=== PATIENT | male | born 1950 | race Caucasian/White ===

== ENCOUNTER 2017-10-02 19:08 | Inpatient (IN) | payer OTHER, BC ==
[~2017-10-02] VITALS: Ht 170.2 cm; Wt 91.5 kg
--- NOTE | ~2017-10-02 | HC ---
[facility] [place] [address] CONSULTATION Name: JOSELITO MIRELES Room #: 242-P [facility] IN ..#: [id number] Admission: 10/02/17 Attend Phys: Tan Hadley MD Discharge: Date of : 50 Report #: [id number] THIS REPORT FOR: //name// CC: Stephon Hadley TYPE OF REPORT: Infectious disease consultation. REASON FOR CONSULTATION: I was asked to evaluate concerning gram-negative bacteremia and sepsis. HISTORY OF PRESENT ILLNESS: The patient is a 66-year-old who presented on 10/02/2017 to the Emergency Room with abdominal pain. He has had associated nausea and vomiting. Workup in the Emergency Room noticed elevated lipase of 22,[address] scan showing changes of pancreatitis with inflammatory changes. No abscess. Gallstones. No ureteral obstruction, although he did have a left kidney stone, which was nonobstructing. It was felt most likely gallstone pancreatitis as his etiology to explain this presentation. Further workup identified pyuria and bacteriuria with urine culture showing pansensitive Escherichia coli. Urine culture from both 10/02/2017 and 10/04/2017 had grown the same organism. Blood cultures from 10/04/2017 are positive with gram-negative bacilli, awaiting identification. He has persistent leukocytosis. He was taken to the operating room today for laparoscopic cholecystectomy. No intraoperative complications were noted. Postoperatively, did not come off the ventilator and is now in the Intensive Care Unit. He is sedated. Hemodynamically, he has remained stable. Urine output has been adequate. ALLERGIES: PENTAZOCINE and BUTYL SOLVENT. MEDICATIONS: As noted on his MAR including Zosyn. PAST MEDICAL HISTORY: Diabetes, hypertension, stroke, arthritis, neuropathy and hyperlipidemia. FAMILY HISTORY: Noncontributory. SOCIAL HISTORY: Nonsmoker. No significant alcohol intake. REVIEW OF SYSTEMS: The patient has peripheral IVs. Orally intubated. External condom catheter. PHYSICAL EXAMINATION: VITAL SIGNS: Temperature 100.6, hemodynamically stable. He was sedated on the ventilator, FiO2 40%. ABG: pO2 129, pCO2 of 45 and pH 7.27. SKIN: He had multiple excoriations to his extremities. No cellulitis. HEENT: Eyes unremarkable. NECK: Supple. [facility] [address] [place] [address] CONSULTATION Name: JOSELITO MIRELES Room #: 242-P [facility] IN .R.#: [id number] Admission: 10/02/17 Attend Phys: Tan Hadley MD Discharge: Date of : 50 Report #: [id number] LUNGS: Clear. HEART: Regular, without murmur. ABDOMEN: Diffusely tender. Incisions were unremarkable. External condom catheter in place. EXTREMITIES: Unremarkable. LABORATORY DATA: Sodium 157, potassium 4, bicarbonate of 15, creatinine 1.3 and glucose of 233. Lipase now down to 437, AST 69, ALT 68 and bilirubin normal. Hemoglobin 14.7; white count 16.3 and platelet count 335,000. Urinalysis, pyuria, bacteriuria with urine culture E. coli, pansensitive. Blood cultures, gram-negative bacilli. RADIOLOGICAL DATA: Chest x-ray, no cardiopulmonary process identified. CT scan of the abdomen on admission showed gallstones pancreatic inflammation, small nonobstructing left renal stone. Bladder was nondistended with some diffuse wall thickening. Ultrasound of the abdomen confirmed the same. IMPRESSION: A 66-year-old diabetic with gallstone pancreatitis, gram-negative bacteremia, Escherichia coli urinary tract infection with no ureteral obstruction and a small nonobstructing stone in the left kidney. The source of his bacteremia is yet indeterminate whether it is from his urinary tract or from the gallbladder. We will await final identification of the bloodstream organism. RECOMMENDATIONS: We will continue IV antibiotic therapy, full support with Unasyn adjusted for his renal insufficiency. Continue fluid resuscitation and follow his metabolic acidosis. We will need to increase free water for his hypernatremia. We will check for postvoid residual. <ELECTRONICALLY SIGNED> By: Kvng Rader MD 10/07/17 0838 1858 0123 Kvng Rader MD /nt
--- NOTE | ~2017-10-02 | EKG ---
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: KOSTAS : 1950 Requested By: Piper Torres Order Number: [id number] MD: Lee Barrera Measurements Intervals [place] Rate: 103 P: 51 GA: 185 QRS: 221 QRSD: 120 T: 25 QT: 386 QTc: 506 Interpretive Statements Sinus tachycardia Nonspecific intraventricular conduction delay Inferior infarct, old No previous ECG available for comparison Electronically Signed On 10-03-2017 8:07:15 FLOOR NURSE by Lee Barrera [email or web address] <ELECTRONICALLY SIGNED> By: Lee Barrera MD, [facility] 10/03/1707 17 17 Lee Barrera MD, FACC /EPI
--- NOTE | ~2017-10-02 | HC ---
[facility] [place] [address] CONSULTATION Name: JOSELITO MIRELES Room #: 202-P [facility] IN ..#: [id number] Admission: 10/02/17 Attend Phys: Tan Hadley MD Discharge: Date of : 50 Report #: [id number] THIS REPORT FOR: //name// CC: Stephon Hadley DATE OF SERVICE: 10/12/2017 HISTORY OF PRESENT ILLNESS: The patient is a 66-year-old male who was admitted with nausea, vomiting, and diarrhea. He was diagnosed initially with acute pancreatitis. He underwent further evaluation and was diagnosed with acute cholecystitis, complicated by gallstone pancreatitis. He underwent laparoscopic cholecystectomy on 10/06/2017. His course was complicated by sepsis. He was agitated, had hypernatremia, diagnosed with metabolic encephalopathy with Neurology involvement. He had acute respiratory failure. He is noted to have a significant functional decline from his premorbid status and we are consulted regarding rehabilitation issues. PAST MEDICAL HISTORY: Includes a prior CVA in 2005 with left-sided weakness, history of hypertension, seizures, diabetes mellitus insulin dependent, and hyperlipidemia. ALLERGIES: PENTAZOCINE AND BUTYL SOLVENT. HABITS: No history of tobacco abuse. There is a past use of alcohol, but none in a few months. SOCIAL HISTORY: He lives in a house in the basement. Apparently, this is the daughter's house where he lives with his daughter and son-in-law. He premorbidly utilized a front-wheeled walker. REVIEW OF SYSTEMS: Unobtainable at this time. PHYSICAL EXAMINATION: GENERAL: A 66-year-old white male, who was lying in bed and essentially stared at me. NEUROLOGIC: He made some very simple one-word statements, but otherwise I could not get him to converse. Facies appeared to be symmetric. There was a considerable latency to his responses and I had a hard time getting him to follow basic commands. He would look at me. He appeared to have generalized weakness of both upper and lower extremities at least a grade 3/5-2+/5. It was difficult to get him to actually work on the manual muscle testing. He has been max assist for basic rolling. ASSESSMENT: A 66-year-old white male with the following problem list: 1. [place] [address] CONSULTATION Name: STEPHANIEKANEJOSELITO Nieves Room #: 202-P [facility] IN .R.#: [id number] Admission: 10/02/17 Attend Phys: Tan Hadley MD Discharge: Date of : 50 Report #: [id number] 2. Acute pancreatitis, likely due to cholelithiasis, status post laparoscopic cholecystectomy. 3. Sepsis secondary to Escherichia coli urinary tract infection and bacteremia. 4. Hypernatremia with noted free water deficit. 5. Acute respiratory failure. 6. Diabetes mellitus type 2, uncontrolled. 7. Acute renal insufficiency superimposed on chronic kidney disease. 8. Hypertension. PLAN: We will need to see how the patient is able to tolerate the therapy program. He certainly could be a candidate for acute in-hospital inpatient rehabilitation if his tolerance for therapies improves and his overall cognition becomes more interactive and he can follow commands better. At this point, we will be glad to follow along with you regarding his rehab therapy needs. <ELECTRONICALLY SIGNED> By: Ney Silvestre MD 10/14/17 1306 1256 2104 Ney Silvestre MD /[facility]
--- NOTE | ~2017-10-02 | EKG ---
[address] [address] ELECTROCARDIOGRAM REPORT Name: JOSELITO MIRELES Room #: 150-1 ADM IN .R.#: [id number] Admission: 10/02/17 Attend Phys: Tan Hadley MD Discharge: Date of : 50 Report #: [id number] THIS REPORT FOR: //name// 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
--- NOTE | ~2017-10-02 | EEG ---
[facility] [place] [address] ELECTROENCEPHALOGRAM Name: JOSELITO MIRELES Nieves Room #: 202-P [facility] IN M.R.#: [id number] Admission: 10/02/17 Attend Phys: Tan Hadley MD Discharge: Date of : 50 Report #: [id number] THIS REPORT FOR: //name// CC: Stephon Hadley DATE OF SERVICE: 10/11/2017 This patient is being evaluated for altered mental status. EEG was done by placing the electrodes by standard 10/20 system of electrode placement. Both referential and sequential montages were used for recording. A lot of artifact is present as the patient did not cooperate. Background activity appeared to be about 8 Hz and 30 microvolt. The patient became drowsy that is associated with bilateral slowing. Photic stimulation was unremarkable. Throughout the record, no active epileptiform activity was noticed. IMPRESSION: This patient's EEG is masked by a lot of artifact, but otherwise looks unremarkable. Thank you very much for this referral. <ELECTRONICALLY SIGNED> By: Willy Cornelius MD 10/14/172001 31 36 Willy Cornelius MD /nt
--- NOTE | ~2017-10-02 | HC ---
[facility] [place] [address] CONSULTATION Name: JOSELITO MIRELES Room #: 202-P [facility] IN ..#: [id number] Admission: 10/02/17 Attend Phys: Tan Hadley MD Discharge: 10/14/17 Date of : 50 Report #: [id number] THIS REPORT FOR: //name// CC: Stephon Hadley REASON FOR CONSULTATION: Hypernatremia. REASON FOR PRESENTATION: Weakness. HISTORY OF PRESENT ILLNESS: The patient is 66-year-old, he is currently confused and not able to provide me with history. He was admitted to the hospital back in 10/02, when he presented with weakness, nausea, vomiting, abdominal pain. He was found to have an elevated lipase at 22,[address] showing pancreatitis and inflammatory changes. He ended up with gram-negative bacteremia, was taken to the OR where he had a lap cholecystectomy. He required an ICU stay for an extended period of time. He had an acute kidney injury that had resolved. GI along with surgical team and Infectious Disease team were following the patient appropriately. In the last 8 or 9 days, the patient's sodium has been persistently elevated with a negative input and output records significantly. It does look like that the patient has very decreased p.o. intake and currently is maintained on thickened pureed diet contributing to his hypernatremia. No known previous kidney problems. PAST MEDICAL HISTORY: 1. Diabetes mellitus. 2. Hypertension. 3. Hyperlipidemia. MEDICATIONS: Amitriptyline, aspirin, metformin, Mobic, lisinopril, Vistaril, Neurontin, Percocet, Zocor, spironolactone. ALLERGIES: PENTAZOCINE. FAMILY HISTORY: Hypertension. SOCIAL HISTORY: No drug or alcohol abuse. REVIEW OF SYSTEMS: Currently, the patient is confused and not able to provide me with the details of the review of system. PHYSICAL EXAMINATION: GENERAL: He is disoriented to time, place, and person. VITAL SIGNS: Blood pressure is on the high side at 150/85. Negative input and output in the last few days. HEAD AND NECK: No jugular venous distention. CHEST: No crackles. [facility] [address] [place] [address] CONSULTATION Name: JOSELITO MIRELES Nieves Room #: 202-P [facility] IN .R.#: [id number] Admission: 10/02/17 Attend Phys: Tan Hadley MD Discharge: 10/14/17 Date of : 50 Report #: [id number] CARDIOVASCULAR: Regular with no rub. ABDOMEN: Soft, nontender. LOWER EXTREMITIES: No edema. LABORATORY VALUES: Reviewed. Sodium from yesterday is 155. He has a normal kidney function at 1.3. ASSESSMENT, IMPRESSION, PLAN: 1. Hypernatremia. 2. Pancreatitis, status post lap benjamin. 3. Gram-negative bacteremia with Escherichia coli. 4. The patient's hypernatremia is due to negative input and output records in the last few days. This is due to poor p.o. intake. The patient was started on D5W. Pending lab from this morning. I will adjust based on his sodium values. 5. We will continue to follow along. <ELECTRONICALLY SIGNED> By: Sukumar Esqueda MD 10/16/17 1505 0852 1332 Sukumar Esqueda MD /nt
--- NOTE | ~2017-10-02 | HC ---
[facility] [place] [address] CONSULTATION Name: ALINEJOSELITO D Room #: 205-P [facility] IN ..#: [id number] Admission: 10/02/17 Attend Phys: Tan Hadley MD Discharge: Date of : 50 Report #: [id number] THIS REPORT FOR: //name// CC: Stephon Hadley DATE OF SERVICE: 10/03/2017 REFERRING PROVIDER: Tan Hadley MD REASON FOR CONSULTATION: Abdominal pain. HISTORY OF PRESENT ILLNESS: The patient is a 66-year-old male who presented to the Emergency Room yesterday with complaints of weakness and worsening abdominal pain. The patient's pain and nausea began last week and as it became so severe, he presented yesterday where evaluation in the form of laboratories and a CT scan of the abdomen and pelvis were obtained. The patient was noted to have a lipase of 22,[address] scan finding showing marked inflammatory findings around the head of the pancreas consistent with pancreatitis. The patient states he had a prior gallbladder attack approximately 10 years ago; however, that subsided without intervention and he has not had any symptoms since then. As the patient has a working diagnosis of acute gallstone pancreatitis, he is admitted and I have been asked to evaluate. PAST MEDICAL HISTORY: Diabetes mellitus, hypertension, prior stroke, arthritis, neuropathy, hyperlipidemia and hypertriglyceridemia. HOME MEDICATIONS: Amitriptyline, aspirin, Plavix, Flexeril, Neurontin, Vistaril, lisinopril, Mobic, metformin, p.r.n. nitroglycerin, Percocet, pravastatin, spironolactone, Zocor, linagliptin, dulaglutide and Ambien. ALLERGIES: PENTAZOCINE and BUTYL SOLVENT. FAMILY HISTORY: Reviewed and noncontributory. SOCIAL HISTORY: The patient does not utilize tobacco or illicit drugs, does drink alcohol occasionally, although he used to drink alcohol substantially prior to his stroke. REVIEW OF SYSTEMS: GENERAL: The patient denies nocturnal fevers or chills. HEENT: No change in vision, change in hearing. NECK: No swelling or difficulty swallowing. HEART: No chest pain, palpitations. LUNGS: No cough or shortness of breath. ABDOMEN: Abdominal pain with nausea. [address] [address] CONSULTATION Name: JOSELITO MIRELES Room #: [facility] IN .R.#: [id number] Admission: 10/02/17 Attend Phys: Tan Hadley MD Discharge: Date of : 50 Report #: [id number] GENITOURINARY: No dysuria or hematuria. ENDOCRINE: No polyuria, polydipsia. HEMATOLOGIC: No history of bleeding or easy bruising. EXTREMITIES: No history of weakness or limited range of motion. NEUROLOGIC: No history of syncope or near syncopal episodes. SKIN AND INTEGUMENT: No history of abnormal lesions or moles. PSYCHIATRIC: No history of anxiety or depression. PHYSICAL EXAMINATION: VITAL SIGNS: Temperature 98.9, pulse 118, respirations 20, blood pressure 177/87. He stands 5 feet 7 inches tall and weighs 206 pounds. GENERAL: He is awake but confused and in no acute distress. HEENT: Normocephalic, atraumatic. Pupils equal, round, reactive to light. NECK: Supple, without lymphadenopathy. Trachea midline. HEART: Tachycardic, but regular rhythm. LUNGS: Clear to auscultation bilaterally. ABDOMEN: Obese, soft, nondistended. He does have tenderness generally throughout to diffuse palpation, minimally worsened in the epigastrium, but no guarding, no rebound, no peritoneal signs or symptoms. GENITOURINARY: Normal external male genitalia. EXTREMITIES: No clubbing, cyanosis or edema. NEUROLOGIC: Cranial nerves 2-12 are grossly intact. PSYCHIATRIC: Normal mood and affect. SKIN AND INTEGUMENT: No abnormal lesions or moles. LABORATORY AND X-RAY DATA: CBC shows white blood cell count of 17.9 thousand, hemoglobin 16.9, platelets 246,000. His white blood cell count is up from 16.9 thousand yesterday. His creatinine is 1.3. His lipase is improved to 9466 from its admission level of 22,310 yesterday. Liver function enzymes show an AST of 110, ALT 79, alkaline phosphatase of 107 and total bilirubin of 0.6 with direct component of 0.1. Hemoglobin A1c is elevated at 7.2. Lactic acid 1.6. Alcohol negative. CT scan of the abdomen and pelvis was reviewed showing pancreatitis with gallstones. ASSESSMENT AND PLAN: A 66-year-old unhealthy male with what appears to be acute gallstone pancreatitis. My suspicion is that he passed a stone as he does not have ductal dilatation or elevated bilirubin on workup. Nonetheless, we will continue to monitor his labs daily and perform serial abdominal exams and ultimately he may necessitate definitive surgical intervention in the form of laparoscopic cholecystectomy with cholangiogram. If he should have a bump in his LFTs prior he might necessitate a preoperative ERCP; however, with his labs trending the way they are, I suspect he passed a stone. [address] [place] [address] CONSULTATION Name: JOSELITO MIRELES Room #: 205-P ADM IN M.R.#: [id number] Admission: 10/02/17 Attend Phys: Tan Hadley MD Discharge: Date of : 50 Report #: [id number] I sincerely appreciate this consult. I will follow closely and leave any further recommendations in the patient's chart as appropriate. <ELECTRONICALLY SIGNED> By: Robin Bland MD, FACS 10/04/17 1357 1247 1829 Robin Bland MD, FACS /nt
--- NOTE | ~2017-10-02 | S ---
[facility] [place] [address] SURGICAL PATH RPT PROCEDURE Name: DANIEL MIRELES Nieves Room #: 242-P ADM IN M.R.#: [id number] Admission: 10/02/17 Date of : 50 Discharge: Report #: [id number] Path Case #: [id number] PATHOLOGY REPORT COLLECTION DATE: 10/06/2017 RECEIVED DATE: 10/06/2017 SUBMITTING PHYS: Dr. Brett Lopez, OTHER PHYS: Dr. Tan Tucker SPECIMEN(S) RECEIVED: A.Gallbladder * * * * * * * * * * * * FINAL DIAGNOSIS: Gallbladder, cholecystectomy: - Chronic cholecystitis. - No gallstones present. (SKM:ana lilia; 10/07/2017) PATHOLOGIST: David Rodgers M.D. REPORT ELECTRONICALLY SIGNED BY: David Rodgers M.D. DATE/TIME: 10/07/2017 15:48 * * * * * * * * * * * * GROSS PATHOLOGY: Received in formalin labeled "Daniel Mireles gallbladder," is a 8.5 x 6.1 x 1.6 cm, previously opened gallbladder with dark green, wrinkled serosal surfaces. Opening the gallbladder reveals dark green, velvety mucosa, rippled with yellow highlights, and an average wall thickness of 0.2 cm. Calculi are not present and no masses are noted grossly. Public Opinion Survey Taker sections from the body and fundus are submitted along with the proximal margin in cassette A1. (TSD; 10/06/2017) CLINICAL HISTORY: Acute cholecystitis INITIAL CPT CODE(S): A; 64496 Professional services performed by [facility] at [facility] [address] [place] [address] Technical services performed by [facility] at [address] [place] [address] [address] [place] [address] SURGICAL PATH RPT PROCEDURE Name: DANIEL MIRELES Room #: 242-P ADM IN [facility].#: [id number] Admission: 10/02/17 Date of : 50 Discharge: Report #: [id number] Path Case #: [id number] [address]. [facility] [address] [address] PHONE: [phone] DIRECTOR: Mariano Echeverria M.D. * * * END OF REPORT * * *
[2017-10-02 19:14] VITALS: BP 156/90
[2017-10-02 20:36] LABS: HEMATOCRIT 52.3 % (42.0-52.0); HEMOGLOBIN 17.2 gm/dL (14.0-18.0); MCH 28.9 pg (26.0-34.0); MCHC 32.9 g/dL (28.0-37.0); MCV 87.7 fL (80.0-100.0); PLATELET COUNT 268 thou/uL (150-400); RBC 5.96 mil/uL (4.50-6.00); RDW 14.1 % (10.5-14.5); WBC 16.9 thou/uL (4.0-11.0)
[2017-10-02 20:40] LABS: CALCIUM 10.9 mg/dL (8.5-10.1); CREATININE 1.7 mg/dL (0.7-1.3); POTASSIUM 5.1 mmol/L (3.5-5.1)
[2017-10-02 20:47] LABS: ALBUMIN 3.3 g/dL (3.4-5.0); DIRECT BILIRUBIN 0.2 mg/dL (<0.1-0.3); TOTAL BILIRUBIN 0.8 mg/dL (<0.1-1.0); TOTAL PROTEIN 8.8 g/dL (6.4-8.2)
[2017-10-02] MEDS ORDERED: AMITRIPTYLINE H25 M2 PO (20:54)
[2017-10-02] MEDS ORDERED: ADULT ASPIRIN R81 MG PO (20:55)
[2017-10-02] MEDS ORDERED: FLEXERIL PO (20:56)
[2017-10-02] MEDS ORDERED: PLAVIX 75 MG TA75 MG PO (20:56)
[2017-10-02] MEDS ORDERED: [UNRECOGNIZED DRUG - OTHER] PO (20:57)
[2017-10-02 20:58] LABS: ABSOLUTE NEUTROPHILS 15.2 thou/uL (1.4-8.2)
[2017-10-02] MEDS ORDERED: NEURONTIN 300300 M1 PO (20:58)
[2017-10-02] MEDS ORDERED: VISTARIL 25 MG25 M1 PO (20:59)
[2017-10-02] MEDS ORDERED: LISINOPRIL5 MG PO (21:00)
[2017-10-02] MEDS ORDERED: GLUCOPHAGE1000 MG PO (21:01)
[2017-10-02] MEDS ORDERED: MOBIC15 MG PO (21:01)
[2017-10-02] MEDS ORDERED: NITROGLYCERIN0.4 MG SUBLING (21:02)
[2017-10-02] MEDS ORDERED: PERCOCET 7.5-31 EACH PO (21:05)
[2017-10-02] MEDS ORDERED: ALDACTONE25 MG PO (21:06)
[2017-10-02] MEDS ORDERED: PRAVACHOL40 MG PO (21:06)
[2017-10-02] MEDS ORDERED: SIMVASTATIN40 MG PO (21:07)
[2017-10-02] MEDS ORDERED: TRADJENTA5 MG (21:08)
[2017-10-02] MEDS ORDERED: TRULICITY1.5 MG/0.5 (21:08)
[2017-10-02] MEDS ORDERED: AMBIEN 5 MG TABL5 M1 PO (21:09)
[2017-10-03 00:02] VITALS: BP 181/105
[2017-10-03 00:20] VITALS: BP 170/90
[2017-10-03 04:35] VITALS: BP 170/87
[2017-10-03 05:47] LABS: HEMOGLOBIN 16.9 gm/dL (14.0-18.0); MCH 28.9 pg (26.0-34.0); MCHC 33.2 g/dL (28.0-37.0); MCV 86.8 fL (80.0-100.0); RBC 5.87 mil/uL (4.50-6.00); RDW 14.1 % (10.5-14.5); WBC 17.9 thou/uL (4.0-11.0)
[2017-10-03 06:05] LABS: AMYLASE 852 U/L (25-115); ANION GAP 14 mmol/L (7-16); BUN 30 mg/dL (7-18); CALCIUM 9.7 mg/dL (8.5-10.1); CHLORIDE 101 mmol/L (98-107); CHOLESTEROL 172 mg/dL (<200); CO2 21 mmol/L (21-32); CREATININE 1.3 mg/dL (0.7-1.3); GLUCOSE 254 mg/dL (74-106); HDL CHOLESTEROL 9 mg/dL (>40); LDL CHOLESTEROL 111 mg/dL (<100); POTASSIUM 4.6 mmol/L (3.5-5.1); SODIUM 136 mmol/L (136-145); TC:HDL 19.1 Ratio (Not establshd); TRIGLYCERIDE 262 mg/dL (<150); VLDL 52 mg/dL (<40)
[2017-10-03 06:09] LABS: SERUM ASSESSMENT Clear
[2017-10-03 06:34] LABS: LIPASE 9466 U/L (73-393)
[2017-10-03 07:30] VITALS: BP 177/87
[2017-10-03 07:56] LABS: AMP/METHAMP Negative (Negative); BARBITURATES Negative (Negative); BENZODIAZEPINES Negative (Negative); COCAINE Negative (Negative); METHADONE Negative (Negative); OPIATES POSITIVE (Negative); PCP Negative (Negative)
[2017-10-03 11:05] VITALS: BP 154/88
[2017-10-03 11:09] LABS: GLYCOHEMOGLOBIN (HGB A1C) 7.2 % (4.8-5.6)
[2017-10-03 11:19] LABS: ALBUMIN 2.8 g/dL (3.4-5.0); DIRECT BILIRUBIN 0.1 mg/dL (<0.1-0.3); TOTAL BILIRUBIN 0.6 mg/dL (<0.1-1.0); TOTAL PROTEIN 7.6 g/dL (6.4-8.2)
[2017-10-03 19:50] VITALS: BP 146/90
[2017-10-03 23:14] LABS: URINE BILIRUBIN NEGATIVE (Negative); URINE BLOOD 3+ (Negative); URINE CLARITY CLEAR; URINE COLOR YELLOW; URINE GLUCOSE-RANDOM* 2+ (Negative); URINE KETONES 1+ (Negative); URINE LEUKOCYTES-REFLEX NEGATIVE (Negative); URINE PROTEIN (DIPSTICK) 1+ (Negative); URINE UROBILINOGEN 0.2 E.U./dl (0.2-1.0)
[2017-10-03 23:15] LABS: URINE NITRITE-REFLEX POSITIVE (Negative)
[2017-10-03 23:20] LABS: FINE GRANULAR CASTS 0-3 Few /LPF (None Seen); MUCUS 0-3 Light strn/LPF (None Seen); SQUAMOUS None Seen /LPF (0-3); TRANSITIONAL EPITHEL CELL 4-10 Moderate /LPF (None Seen)
[2017-10-03 23:22] LABS: BACTERIA-REFLEX >30 Many /HPF (None Seen); CRYSTALS None Seen /LPF (None Seen); URIC ACID CRYSTALS >10 Many /LPF (None Seen); URINE RBC 3-10 Few /HPF (0-2); URINE WBC-REFLEX 6-15 Few /HPF (0-5)
[2017-10-04 03:32] LABS: ALBUMIN 2.6 g/dL (3.4-5.0); CALCIUM 9.3 mg/dL (8.5-10.1); CREATININE 1.6 mg/dL (0.7-1.3); POTASSIUM 4.9 mmol/L (3.5-5.1); TOTAL BILIRUBIN 0.9 mg/dL (<0.1-1.0); TOTAL PROTEIN 6.4 g/dL (6.4-8.2)
[2017-10-04 04:17] LABS: HEMATOCRIT 47.3 % (42.0-52.0); HEMOGLOBIN 15.7 gm/dL (14.0-18.0); MCH 29.2 pg (26.0-34.0); MCHC 33.1 g/dL (28.0-37.0); RBC 5.37 mil/uL (4.50-6.00); RDW 14.1 % (10.5-14.5); WBC 25.6 thou/uL (4.0-11.0)
[2017-10-04 06:32] VITALS: BP 171/94
[2017-10-04 08:37] VITALS: BP 173/98
[2017-10-04 10:50] LABS: URINE BILIRUBIN NEGATIVE (Negative); URINE BLOOD 3+ (Negative); URINE CLARITY CLOUDY; URINE COLOR YELLOW; URINE GLUCOSE-RANDOM* 3+ (Negative); URINE KETONES 1+ (Negative); URINE LEUKOCYTES-REFLEX 1+ (Negative); URINE NITRITE-REFLEX POSITIVE (Negative); URINE PROTEIN (DIPSTICK) 2+ (Negative); URINE SPECIFIC GRAVITY 1.025 (1.005-1.035); URINE UROBILINOGEN 0.2 E.U./dl (0.2-1.0)
[2017-10-04 10:59] LABS: SQUAMOUS None Seen /LPF (0-3); URINE RBC >20 Many /HPF (0-2); URINE WBC-REFLEX >25 Many /HPF (0-5)
[2017-10-04 11:01] LABS: CRYSTALS None Seen /LPF (None Seen)
[2017-10-04 11:02] LABS: BACTERIA-REFLEX >30 Many /HPF (None Seen); CASTS None Seen /LPF (None Seen)
[2017-10-04 11:58] VITALS: BP 188/109
[2017-10-04 15:56] VITALS: BP 174/105
[2017-10-04 20:10] VITALS: BP 180/102
[2017-10-05 00:30] VITALS: BP 174/98
[2017-10-05 04:20] VITALS: BP 166/90
[2017-10-05 08:01] VITALS: BP 186/118
[2017-10-05 08:22] LABS: HEMATOCRIT 45.2 % (42.0-52.0); HEMOGLOBIN 14.7 gm/dL (14.0-18.0); MCH 28.6 pg (26.0-34.0); MCHC 32.6 g/dL (28.0-37.0); MCV 87.7 fL (80.0-100.0); RBC 5.15 mil/uL (4.50-6.00); RDW 14.4 % (10.5-14.5); WBC 23.3 thou/uL (4.0-11.0)
[2017-10-05 08:33] LABS: CREATININE 1.6 mg/dL (0.7-1.3); POTASSIUM 3.8 mmol/L (3.5-5.1)
[2017-10-05 12:02] VITALS: BP 138/111
[2017-10-05 15:11] LABS: ALBUMIN 2.4 g/dL (3.4-5.0); TOTAL PROTEIN 7.5 g/dL (6.4-8.2)
[2017-10-05 15:20] LABS: DIRECT BILIRUBIN 0.4 mg/dL (<0.1-0.3)
[2017-10-05 17:05] VITALS: BP 159/100
[2017-10-05 19:20] VITALS: BP 185/102
[2017-10-06] VITALS (29 sets, daily range): BP systolic 96–176; BP diastolic 62–111
[2017-10-06 03:45] LABS: HEMATOCRIT 46.5 % (42.0-52.0); HEMOGLOBIN 14.7 gm/dL (14.0-18.0); MCH 28.5 pg (26.0-34.0); MCHC 31.6 g/dL (28.0-37.0); MCV 90.3 fL (80.0-100.0); RBC 5.16 mil/uL (4.50-6.00); RDW 14.2 % (10.5-14.5); WBC 16.3 thou/uL (4.0-11.0)
[2017-10-06 04:01] LABS: ALBUMIN 2.3 g/dL (3.4-5.0); CREATININE 1.3 mg/dL (0.7-1.3); TOTAL PROTEIN 7.5 g/dL (6.4-8.2)
[2017-10-06 09:40] LABS: BE(vivo) -9.5 mmol/L (-2 to +3); HCO3 13.4 mmol/L (22.0-26.0); PCO2 23.2 mmHg (35.0-45.0); PO2 81.2 mmHg (80.0-100.0); pH 7.379 (7.360-7.450)
[2017-10-06 13:53] LABS: BE(vivo) -6.7 mmol/L (-2 to +3); HCO3 20.2 mmol/L (22.0-26.0); PO2 129.4 mmHg (80.0-100.0); sO2 98.2 % (92.0-98.0)
[2017-10-06 13:54] LABS: pH 7.269 (7.360-7.450)
[2017-10-07] VITALS (88 sets, daily range): BP systolic 111–198; BP diastolic 62–117
[2017-10-07 05:53] LABS: HEMATOCRIT 42.9 % (42.0-52.0); HEMOGLOBIN 14.1 gm/dL (14.0-18.0); MCH 28.6 pg (26.0-34.0); MCHC 32.9 g/dL (28.0-37.0); MCV 86.8 fL (80.0-100.0); RBC 4.94 mil/uL (4.50-6.00); RDW 14.9 % (10.5-14.5); WBC 15.4 thou/uL (4.0-11.0)
[2017-10-07 05:54] LABS: PLATELET COUNT 247 thou/uL (150-400)
[2017-10-07 06:07] LABS: CALCIUM 9.2 mg/dL (8.5-10.1); CREATININE 1.3 mg/dL (0.7-1.3); POTASSIUM 4.5 mmol/L (3.5-5.1); TOTAL BILIRUBIN 0.9 mg/dL (<0.1-1.0); TOTAL PROTEIN 7.1 g/dL (6.4-8.2)
[2017-10-07 09:53] LABS: ABSOLUTE NEUTROPHILS 13.1 thou/uL (1.4-8.2); METAMYELOCYTES 1 %
[2017-10-07 09:54] LABS: ANISOCYTOSIS 1+
[2017-10-07 10:36] LABS: BE(vivo) -1.9 mmol/L (-2 to +3); HCO3 21.5 mmol/L (22.0-26.0); PO2 81.8 mmHg (80.0-100.0); pH 7.432 (7.360-7.450); sO2 96.4 % (92.0-98.0)
[2017-10-07 18:06] LABS: APTT 26.3 Seconds (24.5-32.8); INR 1.2; PROTIME 12.1 Seconds (9.3-11.4)
[2017-10-08] VITALS (48 sets, daily range): BP systolic 115–173; BP diastolic 57–91
[2017-10-08 05:20] LABS: BE(vivo) 1.3 mmol/L (-2 to +3); HCO3 24.4 mmol/L (22.0-26.0); PCO2 33.8 mmHg (35.0-45.0); PO2 115.2 mmHg (80.0-100.0); pH 7.476 (7.360-7.450); sO2 98.5 % (92.0-98.0)
[2017-10-08 05:22] LABS: ABSOLUTE NEUTROPHILS 14.2 thou/uL (1.4-8.2); BASOPHILS 0.4 % (0.0-2.0); EOSINOPHILS 0.5 % (0.0-3.0); HEMATOCRIT 39.1 % (42.0-52.0); HEMOGLOBIN 13.2 gm/dL (14.0-18.0); LYMPHOCYTES 7.6 % (24.0-44.0); MCH 29.1 pg (26.0-34.0); MCHC 33.8 g/dL (28.0-37.0); MCV 86.2 fL (80.0-100.0); MONOCYTES 5.5 % (1.0-8.0); PLATELET COUNT 220 thou/uL (150-400); RBC 4.54 mil/uL (4.50-6.00); RDW 14.7 % (10.5-14.5); WBC 16.5 thou/uL (4.0-11.0)
[2017-10-08 05:38] LABS: ALBUMIN 1.8 g/dL (3.4-5.0); CALCIUM 8.4 mg/dL (8.5-10.1); CREATININE 1.1 mg/dL (0.7-1.3); TOTAL BILIRUBIN 0.7 mg/dL (<0.1-1.0); TOTAL PROTEIN 6.3 g/dL (6.4-8.2)
[2017-10-08 05:39] LABS: POTASSIUM 3.5 mmol/L (3.5-5.1)
[2017-10-09] VITALS (16 sets, daily range): BP systolic 119–165; BP diastolic 60–85
[2017-10-09 06:49] LABS: ABSOLUTE NEUTROPHILS 9.9 thou/uL (1.4-8.2); BASOPHILS 0.3 % (0.0-2.0); EOSINOPHILS 2.2 % (0.0-3.0); HEMATOCRIT 38.3 % (42.0-52.0); HEMOGLOBIN 12.6 gm/dL (14.0-18.0); LYMPHOCYTES 8.3 % (24.0-44.0); MCH 28.4 pg (26.0-34.0); MCHC 32.9 g/dL (28.0-37.0); MCV 86.5 fL (80.0-100.0); MONOCYTES 4.8 % (1.0-8.0); PLATELET COUNT 187 thou/uL (150-400); POLYS 84.4 % (36.0-66.0); RBC 4.43 mil/uL (4.50-6.00); RDW 14.5 % (10.5-14.5); WBC 11.7 thou/uL (4.0-11.0)
[2017-10-09 07:04] LABS: ALBUMIN 1.6 g/dL (3.4-5.0); CALCIUM 8.6 mg/dL (8.5-10.1); CREATININE 1.2 mg/dL (0.7-1.3); POTASSIUM 3.1 mmol/L (3.5-5.1); TOTAL BILIRUBIN 0.6 mg/dL (<0.1-1.0); TOTAL PROTEIN 6.4 g/dL (6.4-8.2)
[2017-10-10] VITALS (20 sets, daily range): BP systolic 116–181; BP diastolic 62–90
[2017-10-10 05:09] LABS: HEMATOCRIT 36.9 % (42.0-52.0); HEMOGLOBIN 11.9 gm/dL (14.0-18.0); MCH 28.2 pg (26.0-34.0); MCHC 32.3 g/dL (28.0-37.0); MCV 87.5 fL (80.0-100.0); RBC 4.22 mil/uL (4.50-6.00); RDW 14.8 % (10.5-14.5); WBC 10.7 thou/uL (4.0-11.0)
[2017-10-10 05:18] LABS: CALCIUM 8.4 mg/dL (8.5-10.1); CREATININE 1.2 mg/dL (0.7-1.3); POTASSIUM 3.1 mmol/L (3.5-5.1)
[2017-10-10 13:16] LABS: BE(vivo) 4.3 mmol/L (-2 to +3); HCO3 27.7 mmol/L (22.0-26.0); PCO2 36.9 mmHg (35.0-45.0); PO2 100.5 mmHg (80.0-100.0); pH 7.493 (7.360-7.450)
[2017-10-10 17:09] LABS: BE(vivo) 1.6 mmol/L (-2 to +3); HCO3 26.7 mmol/L (22.0-26.0); PCO2 44.2 mmHg (35.0-45.0); PO2 92.5 mmHg (80.0-100.0); pH 7.399 (7.360-7.450)
[2017-10-11] VITALS (15 sets, daily range): BP systolic 135–203; BP diastolic 66–97
[2017-10-11 08:01] LABS: ABSOLUTE NEUTROPHILS 7.5 thou/uL (1.4-8.2); BASOPHILS 0.6 % (0.0-2.0); EOSINOPHILS 1.9 % (0.0-3.0); HEMATOCRIT 37.9 % (42.0-52.0); HEMOGLOBIN 12.5 gm/dL (14.0-18.0); LYMPHOCYTES 11.9 % (24.0-44.0); MCH 28.5 pg (26.0-34.0); MCHC 32.9 g/dL (28.0-37.0); MCV 86.5 fL (80.0-100.0); MONOCYTES 8.3 % (1.0-8.0); PLATELET COUNT 227 thou/uL (150-400); POLYS 77.3 % (36.0-66.0); RBC 4.39 mil/uL (4.50-6.00); WBC 9.7 thou/uL (4.0-11.0)
[2017-10-11 08:07] LABS: CALCIUM 9.1 mg/dL (8.5-10.1); CREATININE 1.3 mg/dL (0.7-1.3); POTASSIUM 3.2 mmol/L (3.5-5.1)
[2017-10-12 03:41] VITALS: BP 153/88
[2017-10-12 05:19] LABS: HEMATOCRIT 37.3 % (42.0-52.0); HEMOGLOBIN 12.1 gm/dL (14.0-18.0); MCH 28.1 pg (26.0-34.0); MCHC 32.3 g/dL (28.0-37.0); MCV 87.1 fL (80.0-100.0); RBC 4.29 mil/uL (4.50-6.00); RDW 14.2 % (10.5-14.5); WBC 8.5 thou/uL (4.0-11.0)
[2017-10-12 05:28] LABS: CALCIUM 9.1 mg/dL (8.5-10.1); CREATININE 1.5 mg/dL (0.7-1.3); MAGNESIUM 1.9 mg/dL (1.8-2.4); POTASSIUM 4.1 mmol/L (3.5-5.1)
[2017-10-12 08:10] VITALS: BP 146/75
[2017-10-12 11:40] VITALS: BP 125/66
[2017-10-12 16:07] VITALS: BP 176/101
[2017-10-12 19:19] LABS: URINE BILIRUBIN NEGATIVE (Negative); URINE BLOOD 3+ (Negative); URINE CLARITY CLEAR; URINE COLOR YELLOW; URINE GLUCOSE-RANDOM* 3+ (Negative); URINE KETONES NEGATIVE (Negative); URINE LEUKOCYTES-REFLEX NEGATIVE (Negative); URINE NITRITE-REFLEX NEGATIVE (Negative); URINE PROTEIN (DIPSTICK) 2+ (Negative); URINE UROBILINOGEN 0.2 E.U./dl (0.2-1.0)
[2017-10-12 19:26] LABS: SQUAMOUS None Seen /LPF (0-3); URINE WBC-REFLEX 0-5 Rare /HPF (0-5)
[2017-10-12 19:27] LABS: BACTERIA-REFLEX 1-9 Few /HPF (None Seen); CASTS None Seen /LPF (None Seen); CRYSTALS None Seen /LPF (None Seen); URINE RBC >20 Many /HPF (0-2)
[2017-10-12 19:34] VITALS: BP 133/74
[2017-10-13 00:23] VITALS: BP 127/69
[2017-10-13 03:26] LABS: CREATININE 1.3 mg/dL (0.7-1.3); POTASSIUM 3.3 mmol/L (3.5-5.1)
[2017-10-13 03:35] LABS: CALCIUM 8.7 mg/dL (8.5-10.1)
[2017-10-13 05:28] VITALS: BP 173/87
[2017-10-13 07:40] VITALS: BP 145/78
[2017-10-13 11:05] VITALS: BP 163/88
[2017-10-13 15:20] VITALS: BP 150/75
[2017-10-13 20:17] VITALS: BP 179/98
[2017-10-14 03:31] VITALS: BP 155/81
[2017-10-14 05:39] LABS: ALBUMIN 1.9 g/dL (3.4-5.0); DIRECT BILIRUBIN 0.3 mg/dL (<0.1-0.3); TOTAL BILIRUBIN 0.6 mg/dL (<0.1-1.0); TOTAL PROTEIN 6.4 g/dL (6.4-8.2)
[2017-10-14 07:25] VITALS: BP 150/85
[2017-10-14 09:29] LABS: CALCIUM 8.6 mg/dL (8.5-10.1); CREATININE 1.4 mg/dL (0.7-1.3); POTASSIUM 3.1 mmol/L (3.5-5.1)
[2017-10-14 09:42] LABS: PHOSPHORUS 2.7 mg/dL (2.5-4.9)
[2017-10-14 11:17] VITALS: BP 162/90
[2017-10-14 15:40] VITALS: BP 149/73
[2017-10-14] MEDS ORDERED: NOVOLOG100 UNIT/1 SUBQ (16:46)
[2017-10-14] MEDS ORDERED: ZOSYN 3.3753.375 GM IV (16:53)
== END 2017-10-14 20:12 | DRG 853 ==
LOC: ER 19:08 → 2N 21:47 → EROBS 21:47 → 2N 10-03 00:04 → TBA 10-06 14:06 → ICU 10-06 17:30 → 2N 10-11 14:37
PROVIDERS: Emergency Medicine; Hospitalist; Internal Medicine; Internal Medicine Gastroenterology; Internal Medicine Pulmonary Disease; Nurse Practitioner; Nurse Practitioner Acute Care; Nurse Practitioner Family; Specialist; Surgery
DX: A41.9 Sepsis, unspecified organism (principal); K85.90 Acute pancreatitis without necrosis or infection, unspecified; K85.10 Biliary acute pancreatitis without necrosis or infection; G93.41 Metabolic encephalopathy; J96.00 Acute respiratory failure, unspecified whether with hypoxia or hypercapnia; N17.9 Acute kidney failure, unspecified; F11.20 Opioid dependence, uncomplicated; N39.0 Urinary tract infection, site not specified; E87.0 Hyperosmolality and hypernatremia; K80.00 Calculus of gallbladder with acute cholecystitis without obstruction; I47.1 Supraventricular tachycardia; N12 Tubulo-interstitial nephritis, not specified as acute or chronic; J98.11 Atelectasis; I69.954 Hemiplegia and hemiparesis following unspecified cerebrovascular disease affecting left non-dominant side; I12.0 Hypertensive chronic kidney disease with stage 5 chronic kidney disease or end stage renal disease; M19.90 Unspecified osteoarthritis, unspecified site; E11.40 Type 2 diabetes mellitus with diabetic neuropathy, unspecified; E78.5 Hyperlipidemia, unspecified; B96.20 Unspecified Escherichia coli [E. coli] as the cause of diseases classified elsewhere; E11.65 Type 2 diabetes mellitus with hyperglycemia; R74.0 Nonspecific elevation of levels of transaminase and lactic acid dehydrogenase [LDH]; K76.0 Fatty (change of) liver, not elsewhere classified; R41.0 Disorientation, unspecified; E87.6 Hypokalemia; E11.22 Type 2 diabetes mellitus with diabetic chronic kidney disease; N18.9 Chronic kidney disease, unspecified; Z88.8 Allergy status to other drugs, medicaments and biological substances; Z79.4 Long term (current) use of insulin; Z82.49 Family history of ischemic heart disease and other diseases of the circulatory system; Z79.82 Long term (current) use of aspirin; Z79.899 Other long term (current) drug therapy
CPT/HCPCS: 10078; 10081; 50010; 50101; 50249; 50411; 50555; 50558; 51489; 51975; 52265; 53307; 53310; 54022; 54118; 55245; 55317; 56462; 56525; 56526; 62110; 62900; 70005

== ENCOUNTER 2017-10-14 16:39 | Inpatient (IN) | payer OTHER ==
[~2017-10-14] VITALS: Ht 175.3 cm; Wt 92.5 kg
--- NOTE | ~2017-10-14 | HC ---
[facility] [place] [address] CONSULTATION Name: JOSELITO MIRELES Room #: 514-P [facility] IN .R.#: [id number] Admission: 10/14/17 Attend Phys: Ney Silvestre MD Discharge: Date of : 50 Report #: [id number] THIS REPORT FOR: //name// CC: Ney Tucker DATE OF SERVICE: 10/16/2017 AGE: 66. ATTENDING PHYSICIAN: Ney Silvestre M.D. ORTHOPAEDIC GENERAL: Damián Marinelli, PhD CLINICAL PRESENTATION: The patient is a 66-year-old male admitted to the rehabilitation unit at [facility] for a comprehensive inpatient rehabilitation program to improve functional mobility, activities of daily living and self-care and mental status secondary to deficits from metabolic encephalopathy. His diagnoses include acute pancreatitis, status post laparoscopic cholecystectomy, sepsis secondary to e-coli, urinary tract infection and bacteremia, hypernatremia, acute respiratory failure, diabetes mellitus type 2, acute renal insufficiency superimposed on chronic kidney disease and hypertension. A complete description of his medical condition and history can be found in his medical record. Neuropsychological consultation was requested to provide assistance in the assessment of cognitive and emotional status and to provide recommendations and services. Prior to this most recent admission, he was living at the home of his daughter and son-in-law. 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 He is a college graduate. The patient is . There is a remote history of alcohol abuse. The patient is reported to have been independent with instrumental activities of daily living prior to this most recent deterioration in his functioning. TECHNIQUES UTILIZED: Clinical interview, review of medical records, staff consultation and behavioral observation,. family interview -- daughter and son-in-law, and mini mental status exam 2 standard version, clock drawing and calibrated ideational, fluency assessment (letter and category) and clock drawing. EXAMINATION FINDINGS: The patient was alert and cooperative with the assessment. He was unable to accurately describe the reason for his hospitalization. There is no evidence of aphasia. He does not report current auditory or visual hallucinations. However, he is reported to have intermittent delusional ideation and visual hallucinations. The patient is lacking insight into the extent of his deficits and cognitive status. [facility] [address] [place] [address] CONSULTATION Name: ALINEJOSELITO Nieves Room #: 514-P [facility] IN ..#: [id number] Admission: 10/14/17 Attend Phys: Ney Silvestre MD Discharge: Date of : 50 Report #: [id number] appears euthymic. He was personable and engaging, may be somewhat irritable when challenged. His family indicates that the patient has been confused and disoriented throughout his hospitalization, although he is described as somewhat improved today. Deficits are noted in memory, verbal fluency, sleep to the extent of being hypersomnolent, appetite and diminished sensitivity to taste. The patient is reported to have been sleeping during the day and awake at night prior to his hospitalization. His family was concerned about his ability to manage his medication and his health care needs independently. His performance on the MMSE 2 brief version was extremely low with a raw score of 10 of 16. He was 3/3 for initial registration, 3/5 for orientation to time and 3/[address]. He was 1/3 correct for immediate recall of 3 items after a brief time delay and distraction. Performance on the MMSE 2 standard version is extremely low with a raw score 22 and a T score 25, which is at the 1st percentile. He was 4/5 for serial sevens, 2/2 for naming, 1/1 for repetition. He was 3/3 for auditory comprehension and being able to read and follow single command. The patient was unable to write a sentence. He could copy a simple geometric design. Category fluency is extremely low with a raw score of 9. Letter fluency is extremely low with a raw score of 6. The patient was 2/8 on a brief abstract reasoning test. He was unable to draw a clock and placement of numbers accurately. Hand placement was incorrect. The patient is presenting with deficits in multiple neurocognitive domains while he is described as improving, continued cognitive deficits on the severe range. DIAGNOSTIC IMPRESSION: Delirium, acute, with mixed level of activity. Neurocognitive disorder, unspecified, with decreased insight and intermittent irritability -- extent to be determined, severe at this time. RECOMMENDATIONS: The patient will likely require 24-hour care to provide assistance with medication, finances and nutritional support at discharge. Driving should be discontinued pending further neuropsychological testing to clarify cognitive status. His family also reports that they will not be able to provide 24-hour care for him. He was living independently in the basement of his daughter and son in law. [facility] [address] [place] [address] CONSULTATION Name: JOSELITO MIRELES Room #: 514-P [facility] IN ..#: [id number] Admission: 10/14/17 Attend Phys: Ney G. Konrad, MD Discharge: Date of : 50 Report #: [id number] Decreased cognitive functioning and poor insight places him at an increased safety risk. The use of memory and orientation notebook may be helpful for him to keep track of daily activity and increased orientation to time, which should assist overall adjustment. Therapy should also focus on improving recall as frequent repetitions is necessary. The patient is likely to be showing an improvement in functioning as as the delirium resolves. A followup Neuropsych assessment after discharge will be helpful to clarify his cognitive status. Thank you very much for allowing me to provide the consultation on this patient. <ELECTRONICALLY SIGNED> By: Damián Marinelli, PhD 10/17/17 1900 1320 Damián Marinelli, PhD /nt
--- NOTE | ~2017-10-14 | PLAN ---
[facility] [place] [address] REHAB UNIT PLAN OF CARE Name: JOSELITO MIRELES Room #: 514-P ADM IN M.R.#: [id number] Admission: 10/14/17 Attend Phys: Ney Silvestre MD Discharge: Date of : 50 Report #: [id number] THIS REPORT FOR: //name// CC: Ney Tucker DATE OF SERVICE: 10/17/2017 The patient is seen back today in followup. He is in no distress. Temperature 36.9, pulse 101, respirations 20, blood pressure 151/78. He is following basic commands. Has decreased insight into his deficits and is somewhat impulsive. No focal calf swelling. Transfers are min assist, which is an improvement. He ambulated 10 feet mod assist with a front-wheeled walker. In occupational therapy, lower body dressing is max assist. Speech therapy reveals moderate to severe comprehensive deficits. He does have significant dysphagia and is on a pureed with nectar thickened liquid, which is an improvement from the honey thickened, he was on before. ASSESSMENT: 1. Metabolic encephalopathy. 2. Significant dysphagia and now advanced to nectar thickened liquids. 3. Acute pancreatitis, likely due to cholelithiasis, status post laparoscopic cholecystectomy. 4. Sepsis secondary to Escherichia coli urinary tract infection and bacteremia. 5. Hypernatremia with noted free water deficit. 6. Acute respiratory failure. 7. Diabetes mellitus type 2 with problems with control. 8. Acute renal insufficiency superimposed on chronic kidney disease. 9. Hypertension. PLAN: The overall plan of care is based on the preadmission screen, post-admission physician evaluation and information garnered from therapy assessments. 1. Estimated length of stay is probably at least 2 weeks pending progress. 2. Medical prognosis is reasonably good. 3. Anticipated interventions includes the interdisciplinary acute inpatient rehabilitation program with PT, OT and speech rehab nursing working with him regarding medication management, skin care prophylaxis, bowel and bladder issues and nursing education. By the multiple career consultant physicians continue to follow as well as the rest of the interdisciplinary rehabilitation team. 4. Anticipated functional outcomes would be for the patient to hopefully become modified independent with transfers, mobility and ADLs that he can return back to the home setting. 5. Discharge destination would be back to the home setting where he is noted to live in the basement of the house with his daughter and son-in-law upstairs. 6. Expected therapy by discipline includes PT, OT and speech 1 hour per day [address] [address] REHAB UNIT PLAN OF CARE Name: JOSELITO MIRELES Room #: 514-P [facility] IN ..#: [id number] Admission: 10/14/17 Attend Phys: Ney Silvestre MD Discharge: Date of : 50 Report #: [id number] each five days a week throughout the duration of the acute inpatient stay. The patient did miss some therapy minutes on Sunday 10/15, due to endurance and fatigue. <ELECTRONICALLY SIGNED> By: Ney Silvestre MD 10/18/17 1109 0823 1602 Ney Silvestre MD /[facility]
--- NOTE | ~2017-10-14 | PLAN ---
[facility] [address] [address] REHAB UNIT PLAN OF CARE Name: ALINEJOSELITO Nieves Room #: 514-P ADM IN M.R.#: [id number] Admission: 10/14/17 Attend Phys: Ney Silvestre MD Discharge: Date of : 50 Report #: [id number] THIS REPORT FOR: //name// CC: Ney Tucker DATE OF SERVICE: 10/15/2017 ADDENDUM The patient did miss some therapy minutes on Sunday 10/15, due to endurance and fatigue. <ELECTRONICALLY SIGNED> By: Ney Silvestre MD 10/18/17 1109 0907 1728 Ney Silvestre MD /PMT
--- NOTE | ~2017-10-14 | H ---
[facility] [place] [address] HISTORY AND PHYSICAL Name: JOSELITO MIRELES Nieves Room #: 514-P ADM IN M.R.#: [id number] Admission: 10/14/17 Attend Phys: Ney Silvestre MD Discharge: Date of : 50 Report #: [id number] THIS REPORT FOR: //name// CC: Ney Tucker DATE OF SERVICE: 10/14/2017 HISTORY AND PHYSICAL AND POSTADMISSION PHYSICIAN EVALUATION HISTORY OF PRESENT ILLNESS: The patient is a 66-year-old male originally admitted to [facility] with nausea, vomiting and diarrhea. He was diagnosed initially with acute pancreatitis. He underwent further evaluation and was diagnosed with acute cholecystitis complicated by gallstone pancreatitis. He underwent laparoscopic cholecystectomy on 10/06/2017. His course was complicated by sepsis. He was agitated, had hypernatremia and diagnosed with metabolic encephalopathy with Neurology involvement. He has had acute respiratory failure. He was noted to have significant functional decline from his premorbid status and has now been admitted for acute in-hospital inpatient rehabilitation. PAST MEDICAL HISTORY: Includes a prior CVA in 2005 with left-sided weakness. History of hypertension, seizures, and diabetes mellitus, insulin-dependent. ALLERGIES: PENTAZOCINE AND BUTYL SOLVENT. HABITS: No history of tobacco abuse. There is a past use of alcohol, but none in a few months. SOCIAL HISTORY: Lives in a house in the basement. Apparently, this is the daughter's house where he lives with his daughter and son-in-law. He premorbidly utilized a front-wheeled walker. REVIEW OF SYSTEMS: Unobtainable at this time. He was rather groggy, follows basic commands, but had some difficulty with the questioning. PHYSICAL EXAMINATION: GENERAL: He is a 66-year-old white male lying in bed. He was sleepy. He needs cues. He has decreased attention. He will follow some basic 1 step commands. Some impulsivity. NEUROLOGIC: Facies appeared to be symmetric. There is a latency to his responses. CHEST: Sounded clear to auscultation. CARDIOVASCULAR: Regular rate and rhythm. ABDOMEN: Bowel sounds positive, nontender. GENITOURINARY AND RECTAL: Deferred. He appeared to have functional range of [facility] [address] [place] [address] HISTORY AND PHYSICAL Name: JOSELITO MIRELES Room #: 514-P [facility] IN ..#: [id number] Admission: 10/14/17 Attend Phys: Ney Silvestre MD Discharge: Date of : 50 Report #: [id number] motion of both upper and lower extremities with generalized weakness probably a grade 3-3+/5. DTRs are trace to 1. I did not attempt to test sensation. He has been max assist for sit to stand and supervision to edge of bed has been max assist. He has been more alert in therapies prior to his admission to rehabilitation. ASSESSMENT: A 66-year-old white male with the following problem list: 1. Metabolic encephalopathy. 2. Acute pancreatitis, likely due to cholelithiasis, status post laparoscopic cholecystectomy. 3. Sepsis secondary to Escherichia coli, urinary tract infection, and bacteremia. 4. Hypernatremia with noted free water deficit. 5. Acute respiratory failure. 6. Diabetes mellitus type 2 with problems with control. 7. Acute renal insufficiency superimposed on chronic kidney disease. 8. Hypertension. PLAN: The patient is admitted for acute in-hospital inpatient rehabilitation. From a postadmission physician evaluation perspective, there are no relevant changes since the preadmission screening. Please see the above review of prior and current functional and medical conditions and comorbidities. Please see the patient's previous and current functional status. As far as risk of complications, the patient has multiple medical comorbidities as noted above. Initial plan of care involves the interdisciplinary acute inpatient rehabilitation program with goal of maximizing his functional independence, so he can hopefully return back to his prior living situation. Measurable functional goals would be for him to improve as far as his transfers, mobility, and basic ADLs and cognitive issues. Hopefully, we can get him back of moving with the walker again. Prognosis is reasonably good with estimated length of stay probably fairly long as he is at a lower level. Potential barriers would include his multiple medical comorbidities and decreased functional status. The patient meets diagnostic criteria for an acute in-hospital inpatient rehabilitation stay. He does have the medical necessity for an acute rehab stay and we will have the multiple medical consultants continue to follow while he is on rehabilitation. He does have the tolerance for rehab therapy program and he has appropriate discharge goals back to the home setting. <ELECTRONICALLY SIGNED> By: Ney Silvestre MD 10/18/17 1109 [id number] Ney Silvestre MD /[facility]
[~2017-10-14 16:39] MED LIST: ADULT ASPIRIN R81 MG PO; ALDACTONE25 MG PO; AMBIEN 5 MG TABL5 M1 PO; AMITRIPTYLINE H25 M2 PO; FLEXERIL PO; GLUCOPHAGE1000 MG PO; LISINOPRIL5 MG PO; MOBIC15 MG PO; NEURONTIN 300300 M1 PO; NITROGLYCERIN0.4 MG SUBLING; PERCOCET 7.5-31 EACH PO; PLAVIX 75 MG TA75 MG PO; PRAVACHOL40 MG PO; SIMVASTATIN40 MG PO; TRADJENTA5 MG; TRULICITY1.5 MG/0.5; VISTARIL 25 MG25 M1 PO; [UNRECOGNIZED DRUG - OTHER] PO
[2017-10-14] MEDS ORDERED: NOVOLOG100 UNIT/1 SUBQ (16:46)
[2017-10-14] MEDS ORDERED: ZOSYN 3.3753.375 GM IV (16:53)
[2017-10-14 21:41] VITALS: BP 148/75
[2017-10-15 06:27] LABS: HEMOGLOBIN 11.9 gm/dL (14.0-18.0); MCH 28.7 pg (26.0-34.0); MCHC 33.2 g/dL (28.0-37.0); MCV 86.5 fL (80.0-100.0); RBC 4.16 mil/uL (4.50-6.00); RDW 13.8 % (10.5-14.5); WBC 10.2 thou/uL (4.0-11.0)
[2017-10-15 06:31] LABS: CALCIUM 8.2 mg/dL (8.5-10.1); CREATININE 1.3 mg/dL (0.7-1.3); POTASSIUM 3.4 mmol/L (3.5-5.1)
[2017-10-15 06:57] VITALS: BP 152/89
[2017-10-15 21:04] VITALS: BP 128/69
[2017-10-16 05:33] LABS: CALCIUM 8.4 mg/dL (8.5-10.1); CREATININE 1.5 mg/dL (0.7-1.3)
[2017-10-16 08:00] VITALS: BP 133/69
[2017-10-16 19:25] VITALS: BP 136/66
[2017-10-17 03:37] VITALS: BP 151/78
[2017-10-17 09:00] VITALS: BP 122/71
[2017-10-17 20:00] VITALS: BP 149/71
[2017-10-18 05:13] LABS: ALBUMIN 2.1 g/dL (3.4-5.0); CALCIUM 8.2 mg/dL (8.5-10.1); CREATININE 1.1 mg/dL (0.7-1.3); PHOSPHORUS 3.2 mg/dL (2.5-4.9)
[2017-10-18 05:18] LABS: POTASSIUM 2.9 mmol/L (3.5-5.1)
[2017-10-18 07:45] VITALS: BP 143/91
[2017-10-18 19:52] VITALS: BP 144/43
[2017-10-19 04:37] LABS: ALBUMIN 2.2 g/dL (3.4-5.0); CALCIUM 8.5 mg/dL (8.5-10.1); CREATININE 1.1 mg/dL (0.7-1.3); MAGNESIUM 1.8 mg/dL (1.8-2.4); PHOSPHORUS 3.2 mg/dL (2.5-4.9); POTASSIUM 3.7 mmol/L (3.5-5.1)
[2017-10-19 06:48] VITALS: BP 161/76
[2017-10-19 19:25] VITALS: BP 148/83
[2017-10-20 02:30] VITALS: BP 144/86
[2017-10-20 03:25] VITALS: BP 171/92
[2017-10-20 08:15] VITALS: BP 149/90
[2017-10-20 19:43] VITALS: BP 145/84; BP 145/85
[2017-10-21 05:59] LABS: ABSOLUTE NEUTROPHILS 3.6 thou/uL (1.4-8.2); BASOPHILS 0.8 % (0.0-2.0); EOSINOPHILS 4.5 % (0.0-3.0); HEMATOCRIT 34.1 % (42.0-52.0); HEMOGLOBIN 11.4 gm/dL (14.0-18.0); LYMPHOCYTES 22.8 % (24.0-44.0); MCHC 33.5 g/dL (28.0-37.0); MCV 86.7 fL (80.0-100.0); MONOCYTES 9.4 % (1.0-8.0); PLATELET COUNT 316 thou/uL (150-400); POLYS 62.5 % (36.0-66.0); RBC 3.94 mil/uL (4.50-6.00); RDW 14.9 % (10.5-14.5); WBC 5.8 thou/uL (4.0-11.0)
[2017-10-21 06:20] LABS: ALBUMIN 2.1 g/dL (3.4-5.0); CALCIUM 8.5 mg/dL (8.5-10.1); MAGNESIUM 1.8 mg/dL (1.8-2.4); POTASSIUM 3.5 mmol/L (3.5-5.1); TOTAL BILIRUBIN 0.4 mg/dL (<0.1-1.0); TOTAL PROTEIN 6.5 g/dL (6.4-8.2)
[2017-10-21 07:59] VITALS: BP 154/93
[2017-10-21 20:20] VITALS: BP 159/90
[2017-10-22 08:00] VITALS: BP 135/75
[2017-10-22 20:30] VITALS: BP 138/67
[2017-10-23 10:24] VITALS: BP 146/88
[2017-10-23 15:16] LABS: URINE BILIRUBIN NEGATIVE (Negative); URINE BLOOD 3+ (Negative); URINE CLARITY CLEAR; URINE COLOR YELLOW; URINE GLUCOSE-RANDOM* NEGATIVE (Negative); URINE KETONES NEGATIVE (Negative); URINE LEUKOCYTES TRACE (Negative); URINE NITRITE NEGATIVE (Negative); URINE PROTEIN (DIPSTICK) 2+ (Negative); URINE UROBILINOGEN 0.2 E.U./dl (0.2-1.0)
[2017-10-23 16:11] LABS: CASTS None Seen /LPF (None Seen); SQUAMOUS 0-3 Few /LPF (0-3)
[2017-10-23 16:12] LABS: URINE WBC 6-15 Few /HPF (0-5)
[2017-10-23 16:13] LABS: CRYSTALS None Seen /LPF (None Seen); WBC CLUMPS Moderate (None Seen)
[2017-10-23 20:15] VITALS: BP 146/67
[2017-10-24 08:00] VITALS: BP 134/85
[2017-10-24 19:46] VITALS: BP 135/70
[2017-10-25 04:52] LABS: ABSOLUTE NEUTROPHILS 4.7 thou/uL (1.4-8.2); BASOPHILS 0.6 % (0.0-2.0); EOSINOPHILS 3.2 % (0.0-3.0); HEMATOCRIT 34.9 % (42.0-52.0); HEMOGLOBIN 11.7 gm/dL (14.0-18.0); LYMPHOCYTES 23.9 % (24.0-44.0); MCH 29.5 pg (26.0-34.0); MCHC 33.4 g/dL (28.0-37.0); MCV 88.4 fL (80.0-100.0); MONOCYTES 8.1 % (1.0-8.0); PLATELET COUNT 265 thou/uL (150-400); POLYS 64.2 % (36.0-66.0); RBC 3.95 mil/uL (4.50-6.00); RDW 15.7 % (10.5-14.5); WBC 7.3 thou/uL (4.0-11.0)
[2017-10-25 04:59] LABS: CALCIUM 8.8 mg/dL (8.5-10.1); MAGNESIUM 1.9 mg/dL (1.8-2.4); POTASSIUM 4.1 mmol/L (3.5-5.1)
[2017-10-25 08:30] VITALS: BP 143/82
[2017-10-25 15:29] VITALS: BP 143/82
[2017-10-25 19:00] VITALS: BP 151/87
[2017-10-26 08:00] VITALS: BP 126/67
[2017-10-26 19:55] VITALS: BP 140/69
[2017-10-27 08:15] VITALS: BP 125/80
[2017-10-27] MEDS ORDERED: ULTRAM 50MG TAB50 MG PO (11:43)
[2017-10-27] MEDS ORDERED: TRADJENTA5 MG PO (11:47)
[2017-10-27] MEDS ORDERED: PRAVACHOL40 MG PO (11:47)
[2017-10-27] MEDS ORDERED: PLAVIX 75 MG TA75 MG PO (11:47)
[2017-10-27] MEDS ORDERED: PEPCID20 MG PO (11:47)
[2017-10-27] MEDS ORDERED: NEURONTIN 300300 M1 PO (11:47)
[2017-10-27] MEDS ORDERED: NOVOLOG100 UNIT/1 SUBQ (11:47)
[2017-10-27] MEDS ORDERED: OXYBUTYNIN 5 MG5 M2 PO (11:47)
[2017-10-27] MEDS ORDERED: VITAMIN D1000 UNI1 PO (11:47)
[2017-10-27] MEDS ORDERED: COLACE100 MG PO (11:47)
[2017-10-27] MEDS ORDERED: INSULIN PEN NEEDLES (11:47)
[2017-10-27] MEDS ORDERED: LANTUS SUBQ (11:47)
[2017-10-27] MEDS ORDERED: LISINOPRIL5 MG PO (11:47)
[2017-10-27] MEDS ORDERED: PROBIOTIC1 EAC1 PO (11:50)
[2017-10-27] MEDS ORDERED: CEFUROXIME500 MG PO (11:50)
[2017-10-27 20:24] VITALS: BP 153/76
[2017-10-28 08:10] VITALS: BP 139/77
[2017-10-28 09:51] VITALS: BP 143/82
[2017-10-28 12:27] VITALS: BP 143/82
== END 2017-10-28 14:55 | disposition home health service (06) | DRG 70 ==
LOC: ENTRNSPT 10-28 14:05 → EDTRNSPTSTS 10-28 14:07
PROVIDERS: Hospitalist; Internal Medicine Nephrology; Nurse Practitioner; Physical Medicine & Rehabilitation
DX: G93.41 Metabolic encephalopathy (principal); J96.00 Acute respiratory failure, unspecified whether with hypoxia or hypercapnia; K85.10 Biliary acute pancreatitis without necrosis or infection; E87.0 Hyperosmolality and hypernatremia; N17.9 Acute kidney failure, unspecified; N12 Tubulo-interstitial nephritis, not specified as acute or chronic; F11.20 Opioid dependence, uncomplicated; E46 Unspecified protein-calorie malnutrition; N18.9 Chronic kidney disease, unspecified; I12.9 Hypertensive chronic kidney disease with stage 1 through stage 4 chronic kidney disease, or unspecified chronic kidney disease; R41.0 Disorientation, unspecified; R41.9 Unspecified symptoms and signs involving cognitive functions and awareness; R13.10 Dysphagia, unspecified; R53.81 Other malaise; E11.65 Type 2 diabetes mellitus with hyperglycemia; E11.22 Type 2 diabetes mellitus with diabetic chronic kidney disease; E83.42 Hypomagnesemia; E87.6 Hypokalemia; Z90.49 Acquired absence of other specified parts of digestive tract; Z86.73 Personal history of transient ischemic attack (TIA), and cerebral infarction without residual deficits; Z88.8 Allergy status to other drugs, medicaments and biological substances; Z79.4 Long term (current) use of insulin; Z79.82 Long term (current) use of aspirin; Z79.899 Other long term (current) drug therapy; Z68.30 Body mass index [BMI] 30.0-30.9, adult
CPT/HCPCS: 10112

== ENCOUNTER 2017-11-06 03:58 | Emergency (ER) | payer OTHER, BC ==
[~2017-11-06] VITALS: Ht 175.3 cm; Wt 88.5 kg
[~2017-11-06 03:58] MED LIST changes: +CEFUROXIME500 MG PO; +COLACE100 MG PO; +INSULIN PEN NEEDLES; +LANTUS SUBQ; +NOVOLOG100 UNIT/1 SUBQ; +OXYBUTYNIN 5 MG5 M2 PO; +PEPCID20 MG PO; +PROBIOTIC1 EAC1 PO; +TRADJENTA5 MG PO; +ULTRAM 50MG TAB50 MG PO; +VITAMIN D1000 UNI1 PO; +ZOSYN 3.3753.375 GM IV
[2017-11-06] MEDS ORDERED: TRAMADOL 50 MG50 MG PO (04:22)
[2017-11-06] MEDS ORDERED: FLOMAX0.4 MG PO (04:22)
[2017-11-06 05:12] LABS: URINE BILIRUBIN NEGATIVE (Negative); URINE BLOOD 3+ (Negative); URINE CLARITY CLOUDY; URINE COLOR RED; URINE GLUCOSE-RANDOM* TRACE (Negative); URINE KETONES NEGATIVE (Negative); URINE PROTEIN (DIPSTICK) 3+ (Negative); URINE UROBILINOGEN 0.2 E.U./dl (0.2-1.0)
[2017-11-06 05:14] LABS: ABSOLUTE NEUTROPHILS 6.1 thou/uL (1.4-8.2); EOSINOPHILS 4.1 % (0.0-3.0); HEMATOCRIT 41.2 % (42.0-52.0); HEMOGLOBIN 13.7 gm/dL (14.0-18.0); LYMPHOCYTES 15.7 % (24.0-44.0); MCH 29.6 pg (26.0-34.0); MCHC 33.3 g/dL (28.0-37.0); MCV 88.9 fL (80.0-100.0); MONOCYTES 6.6 % (1.0-8.0); PLATELET COUNT 208 thou/uL (150-400); POLYS 72.6 % (36.0-66.0); RBC 4.63 mil/uL (4.50-6.00); RDW 16.4 % (10.5-14.5); WBC 8.4 thou/uL (4.0-11.0)
[2017-11-06 05:17] LABS: URINE LEUKOCYTES-REFLEX 1+ (Negative); URINE NITRITE-REFLEX POSITIVE (Negative)
[2017-11-06 05:20] LABS: CALCIUM 9.8 mg/dL (8.5-10.1); POTASSIUM 3.6 mmol/L (3.5-5.1)
[2017-11-06 05:26] LABS: ALBUMIN 3.4 g/dL (3.4-5.0); TOTAL BILIRUBIN 0.5 mg/dL (<0.1-1.0); TOTAL PROTEIN 7.9 g/dL (6.4-8.2)
[2017-11-06 05:31] LABS: CASTS None Seen /LPF (None Seen); MUCUS None Seen strn/LPF (None Seen); SQUAMOUS None Seen /LPF (0-3); URINE RBC >20 Many /HPF (0-2)
[2017-11-06 05:32] LABS: CRYSTALS None Seen /LPF (None Seen); TRANSITIONAL EPITHEL CELL 0-3 Few /LPF (None Seen)
[2017-11-06] MEDS ORDERED: KEFLEX500 M1 PO (05:49)
[2017-11-06] MEDS ORDERED: NORCO 5-325 TA1 EACH PO (05:59)
[2017-11-06 06:00] LABS: APTT 20.1 Seconds (24.5-32.8)
[2017-11-06] MEDS ORDERED: TORADOL 10 MG T10 MG PO (06:14)
[2017-11-06 06:29] VITALS: BP 165/82
== END 2017-11-06 06:42 | disposition home or self-care (01) ==
LOC: ER 03:58
PROVIDERS: Emergency Medicine
DX: N20.1 Calculus of ureter (principal); K59.00 Constipation, unspecified; R94.5 Abnormal results of liver function studies; N39.0 Urinary tract infection, site not specified; I10 Essential (primary) hypertension; E11.9 Type 2 diabetes mellitus without complications; E78.5 Hyperlipidemia, unspecified; Z79.4 Long term (current) use of insulin; Z88.8 Allergy status to other drugs, medicaments and biological substances